=== PATIENT | male | born 1935 | race Caucasian/White ===

== ENCOUNTER → 2017-12-03 07:37 | Outpatient (CLI) | payer MEDICARE, OTHER, SELFPAY ==
[2017-12-03 09:20] LABS: Alanine Aminotransferase 15 IU/L (21-72); Albumin 3.9 g/dL (3.5-5.0); Albumin Globulin Ratio 1.1 (1.0-2.8); Alkaline Phosphatase 81 U/L (38-126); Aspartate Aminotransferase 21 IU/L (17-59); Bilirubin Total 0.9 mg/dL (0.2-1.3); Blood Urea Nitrogen 16 mg/dL (9-20); Calcium 8.8 mg/dL (8.4-10.2); Carbon Dioxide 27 mmol/L (22-32); Chloride 106 mmol/L (98-107); Estimated Glomerular Filt Rate > 60.0 mL/min (>60); Globulin 3.7 g/dL (1.7-4.1); Glucose 87 mg/dL (80-110); HEMOLYSIS < 15 (0-50); Potassium 4.5 mmol/L (3.4-5.1); Sodium 142 mmol/L (137-145); Total Protein 7.6 g/dL (6.3-8.2)
[2017-12-03 09:32] LABS: Add Manual Diff / Slide Review NO; Eosinophils Percent Auto 6.8 % (2-4); Hemoglobin 13.7 g/dL (13.5-17.5); Lymphocytes Percent Auto 36.8 % (25-40); Mean Corpuscular HGB Conc 35.3 % (30-36); Mean Corpuscular Hemoglobin 34.2 PG (26-34); Monocytes Percent Auto 10.1 % (3-14); Neutrophils Absolute Auto 2000 /uL (3000-5900); Neutrophils Percent Auto 45.3 % (50-75); Platelet Count 152 X10^3/uL (150-400); Red Blood Cell Count 4.02 X10^6/uL (4.5-5.9); Red Cell Distribution Width 13.4 % (11.6-14.8); White Blood Cell Count 4.5 X10^3/uL (4.5-11.0)
[2017-12-06 11:53] LABS: Haptoglobin 77 mg/dL (43-212)
== END ==
PROVIDERS: PCP Family Medicine; Visit Provider Internal Medicine
DX: D59.1 Other autoimmune hemolytic anemias (principal)
CPT/HCPCS: 36415; 80053; 83010; 85025

== ENCOUNTER → 2018-03-07 08:13 | Outpatient (CLI) | payer MEDICARE, OTHER, SELFPAY ==
[2018-03-07 09:05] LABS: Add Manual Diff / Slide Review NO; Basophils Percent Auto 0.8 % (0-2); Eosinophils Percent Auto 8.2 % (2-4); Hematocrit 40.7 % (41-53); Hemoglobin 14.2 g/dL (13.5-17.5); Mean Corpuscular HGB Conc 34.8 % (30-36); Mean Corpuscular Hemoglobin 33.9 PG (26-34); Mean Corpuscular Volume 97.4 fL (80-100); Monocytes Percent Auto 9.5 % (3-14); Neutrophils Absolute Auto 1800 /uL (3000-5900); Neutrophils Percent Auto 42.5 % (50-75); Platelet Count 152 X10^3/uL (150-400); Red Blood Cell Count 4.18 X10^6/uL (4.5-5.9); Red Cell Distribution Width 13.2 % (11.6-14.8); White Blood Cell Count 4.2 X10^3/uL (4.5-11.0)
[2018-03-07 09:13] LABS: Reticulocyte Count, Percent 1.4 % (0.87-2.60)
[2018-03-07 09:23] LABS: Alanine Aminotransferase 18 IU/L (21-72); Albumin 4.1 g/dL (3.5-5.0); Albumin Globulin Ratio 1.3 (1.0-2.8); Alkaline Phosphatase 77 U/L (38-126); Aspartate Aminotransferase 20 IU/L (17-59); Bilirubin Total 0.7 mg/dL (0.2-1.3); Blood Urea Nitrogen 16 mg/dL (9-20); Calcium 9.2 mg/dL (8.4-10.2); Carbon Dioxide 31 mmol/L (22-32); Chloride 105 mmol/L (98-107); Estimated Glomerular Filt Rate > 60.0 mL/min (>60); Globulin 3.2 g/dL (1.7-4.1); Glucose 91 mg/dL (80-110); HEMOLYSIS < 15 (0-50); Potassium 4.6 mmol/L (3.4-5.1); Sodium 144 mmol/L (137-145); Total Protein 7.3 g/dL (6.3-8.2)
[2018-03-09 11:41] LABS: Haptoglobin 96 mg/dL (43-212)
== END ==
PROVIDERS: Visit Provider Internal Medicine
DX: D58.9 Hereditary hemolytic anemia, unspecified (principal)
CPT/HCPCS: 36415; 80053; 83010; 85025; 85045

== ENCOUNTER → 2018-06-24 14:48 | Outpatient (CLI) | payer MEDICARE, OTHER, SELFPAY | PROVIDERS: Visit Provider Urology | DX: R97.20 Elevated prostate specific antigen [PSA] (principal) | CPT/HCPCS: 36415; 84153 ==

== ENCOUNTER → 2018-07-09 10:45 | Outpatient (CLI) | payer MEDICARE, OTHER, SELFPAY ==
[2018-07-09 11:24] LABS: Hematocrit 39.8 % (41-53); Hemoglobin 13.9 g/dL (13.5-17.5); Mean Corpuscular Hemoglobin 34.2 PG (26-34); Mean Corpuscular Volume 97.7 fL (80-100); Platelet Count 196 X10^3/uL (150-400); Red Blood Cell Count 4.07 X10^6/uL (4.5-5.9); Red Cell Distribution Width 13.7 % (11.6-14.8); White Blood Cell Count 6.8 X10^3/uL (4.5-11.0)
== END ==
PROVIDERS: PCP Student in an Organized Health Care Education/Training Program; Visit Provider Student in an Organized Health Care Education/Training Program
DX: D58.9 Hereditary hemolytic anemia, unspecified (principal)
CPT/HCPCS: 36415; 85027; 85045

== ENCOUNTER → 2018-12-25 13:34 | Outpatient (CLI) | payer MEDICARE, OTHER, SELFPAY ==
[2018-12-25 15:32] LABS: Prostate Specific Antigen 8.42 ng/mL (0.10-4.00)
== END ==
PROVIDERS: PCP Student in an Organized Health Care Education/Training Program; Visit Provider Urology
DX: R97.20 Elevated prostate specific antigen [PSA] (principal)
CPT/HCPCS: 36415; 84153

== ENCOUNTER 2019-03-26 19:25 | Emergency (ER) | payer MEDICARE, OTHER, SELFPAY ==
[2019-03-26 19:29] VITALS: BP 145/70; PULSE 45; RESP 18; TEMP 35.8; O2SAT 95; BMI 23.0
[2019-03-26] MEDS: ONDANSETRON 4 MG/2 ML INJ (19:53)
[2019-03-26 19:59] LABS: Add Manual Diff / Slide Review NO; Basophils Absolute Auto 100 /uL (0-100); Basophils Percent Auto 0.7 % (0-2); Eosinophils Absolute Auto 100 /uL (0-450); Eosinophils Percent Auto 1.4 % (2-4); Hematocrit 39.6 % (41-53); Lymphocytes Absolute Auto 1100 /uL (1100-4500); Lymphocytes Percent Auto 12.2 % (25-40); Mean Corpuscular HGB Conc 35.3 % (30-36); Mean Corpuscular Hemoglobin 34.8 PG (26-34); Mean Corpuscular Volume 98.7 fL (80-100); Monocytes Absolute Auto 400 /uL (0-900); Monocytes Percent Auto 4.1 % (3-14); Neutrophils Absolute Auto 7100 /uL (1500-7000); Neutrophils Percent Auto 81.6 % (50-75); Platelet Count 159 X10^3/uL (150-400); Red Blood Cell Count 4.01 X10^6/uL (4.5-5.9); Red Cell Distribution Width 12.9 % (11.6-14.8); White Blood Cell Count 8.7 X10^3/uL (4.5-11.0)
[2019-03-26 20:00] VITALS: BP 160/64; PULSE 44; RESP 19; O2SAT 99
[2019-03-26 20:03] LABS: Prothrombin Time 11.1 SECONDS (10.1-12.7)
[2019-03-26 20:06] LABS: PTT Partial Thromboplastin Tim 29 SECONDS (26.4-36.2)
[2019-03-26 20:09] LABS: Alanine Aminotransferase 15 IU/L (21-72); Albumin 4.6 g/dL (3.5-5.0); Albumin Globulin Ratio 1.2 (1.0-2.8); Alkaline Phosphatase 93 U/L (38-126); Aspartate Aminotransferase 24 IU/L (17-59); Blood Urea Nitrogen 20 mg/dL (9-20); Calcium 9.5 mg/dL (8.4-10.2); Carbon Dioxide 27 mmol/L (22-32); Chloride 102 mmol/L (98-107); Estimated Glomerular Filt Rate > 60.0 mL/min (>60); Globulin 3.8 g/dL (1.7-4.1); Glucose 134 mg/dL (80-110); HEMOLYSIS < 15 (0-50); Lipase 160 U/L (23-300); Potassium 4.6 mmol/L (3.4-5.1); Sodium 140 mmol/L (137-145); Total Protein 8.4 g/dL (6.3-8.2)
--- NOTE | 2019-03-26 20:11 | PC.NURSE ---
Hr dropped to 35. Pt denies dizziness. Provider aware at this time. No new orders.
--- NOTE | 2019-03-26 20:15 | ED.ABDPAIN ---
HPI - Abdominal Pain General Chief Complaint: Abdominal Pain Stated Complaint: stomach pains,vomiting,chills,little dizzy Time Seen by Provider: 03/26/19 20:01 Source: patient and family () Mode of arrival: Ambulatory Limitations: no limitations History of Present Illness HPI narrative: 84-year-old male comes in with complaint of stomach pain chills, vomiting it is feeling a little dizzy. Patient states that he started having symptoms were adjusted feel well about 3:00 a.m. this afternoon slowly increasing abdominal pain. Started feeling nauseated around 4 started vomiting at 5:00 p.m.. He had multiple episodes of emesis. Patient states he has not any diarrhea or constipation. He chronically takes Imodium for loose gassy stools. His last bowel movement was at 10:00 a.m. was his typical bowel movement. He denies any bright red blood or black. No new changes with urination. He states pain is just his abdomen does not radiate to his back, he denies any shortness of breath, denies any chest pressure pain. He has felt slightly dizzy but has not had any syncope. States he takes Celebrex occasionally such as 3 times a month for arthritis. He had an appendectomy at age 40 and has had a knee surgery. He occasionally drinks beer and had 1 last night, no tobacco, no illicit. States his heart rate typically in the 50s. His primary care is Dr. Andrews. He is accompanied by his . Related Data Home Medications Medication Instructions Recorded Confirmed acetaminophen #0 03/02/17 07/09/18 Previous Rx's Medication Instructions Recorded celecoxib [Celebrex] 100 mg PO [facility] #90 cap 09/11/17 Allergies Allergy/AdvReac Type Severity Reaction Status Date / Time No Known Drug Allergies Allergy Verified 03/26/19 20:26 Review of Systems Review of Systems ROS Unobtainable: All systems reviewed & are unremarkable except as noted in HPI and below Constitutional Constitutional: Reports chills and Denies fever(s) Cardiovascular Cardiovascular: Denies chest pain, Denies syncope, Denies edema, Denies irregular heart rhythm, Reports lightheadedness, Denies radiating jaw, neck or arm pain, Denies palpitations, Denies dyspnea, Denies dyspnea on exertion and Denies orthopnea Respiratory Respiratory: Denies change in phlegm color, Denies chest congestion, Denies cough, Denies dyspnea and Denies dyspnea on exertion Gastrointestinal Gastrointestinal: Reports abdominal pain, Denies melena, Denies hematochezia, Denies change in bowel habits, Reports excessive flatus (chronically), Denies diarrhea, Reports loose stools (chronically), Reports nausea and Reports vomiting Genitourinary Genitourinary: Denies hematuria, Denies difficulty urinating, Denies genital pain, Denies dysuria, Denies flank pain, Denies urinary frequency, Denies urinary incontinence and Denies urinary urgency Musculoskeletal Musculoskeletal: Denies back pain Integumentary/Breasts Skin/Breast: Denies rash Neurologic Neurologic: Denies syncope Endocrine Endocrine: Denies palpitations [facility] Medical History Chicken pox (Resolved) Chronic ITP (idiopathic thrombocytopenic purpura) (Resolved ~2012) Elevated PSA (Chronic ~2011) Left knee pain (Resolved ~2012) Measles (Resolved) Shoulder pain (Resolved 2008) Skin cancer (Resolved 1998) Surgical History Anesthesia (Resolved) History of arthroplasty of left shoulder (Resolved ~2009) History of knee replacement (Resolved 06/2014) Status post appendectomy (Resolved 1973) Family History (Updated 12/10/17 @ 14:14 by Ynes Sarabia) Grandfather Prostate cancer Grandmother Stroke Grandfather Cancer Sister Lung cancer Heavy smoker Father CML (chronic myelocytic leukemia) Mother Stroke Brother No problems noted. Sister No problems noted. Social History Smoking Status: Never smoker Family History Grandfather Prostate cancer Grandmother Stroke Grandfather Cancer Sister Lung cancer Heavy smoker Father CML (chronic myelocytic leukemia) Mother Stroke Brother No problems noted. Sister No problems noted. Social History (Updated 03/26/19 @ 20:27 by Elvira Meza DO) marital status: Smoking Status: Never smoker alcohol intake: current substance use type: does not use Exam Narrative Exam Narrative: GENERAL: Alert and oriented x three, elderly male in mild distress. HEENT: Head normocephalic, atraumatic, EOMI, pupils reactive, face symmetric, moist mucous membranes NECK: Supple, full range of motion CARDIOVASCULAR: Bradycardic but Regular rate and rhythm without murmurs, rubs or gallops. RESPIRATORY: Breath sounds equal bilaterally, no wheezes rales or rhonchi. No tachypnea or accessory muscle use. ABDOMEN: Soft, nontender to palpation. Normoactive bowel sounds all 4 quadrants. No guarding or rebound, rigidity, no mass, no pulsatile mass or bruit. : No CVA tenderness EXTREMITIES: Normal range of motion, no edema. 2+ pulses bilateral lower extremities. Neurovascularly intact NEUROLOGICAL: Cranial nerves II through XII grossly intact. Moving all extremities SKIN: Warm, dry, no petechiae, no rashes or lesions on abdomen or torso. Initial Vital Signs Initial Vital Signs: Vital Signs Temperature 96.4 F L 03/26/19 19:29 Pulse Rate 45 L 03/26/19 19:29 Respiratory Rate 18 03/26/19 19:29 Blood Pressure 145/70 H 03/26/19 19:29 Pulse Oximetry 95 03/26/19 19:29 Course Orders Ordered: ED Orders 03/26/19 19:40 EKG-12 Lead Stat 03/26/19 19:47 Complete Blood Count AUTO DIFF Stat Comprehensive Metabolic Panel Stat Lipase Stat Partial Thromboplastin Time Stat Prothrombin Time INR Stat Troponin & CK Cardiac Panel Stat 03/26/19 20:24 CT abdomen pelvis w con Stat Discontinued Medications Sodium Chloride (Normal Saline 0.9%) 1,000 mls @ 1,000 mls/hr IV BOLUS ONE Stop: 03/26/19 21:27 Last Infusion: 03/26/19 21:43 Dose: 0 mls/hr Documented by: Admin: 03/26/19 20:29 Dose: 1,000 mls/hr Documented by: EWA Ketorolac Tromethamine (Toradol) 15 mg IV NOW ONE Stop: 03/26/19 21:51 Last Admin: 03/26/19 22:15 Dose: Not Given Documented by: ABIDA Pantoprazole Sodium (Protonix) 40 mg IV NOW ONE Stop: 03/26/19 20:25 Last Admin: 03/26/19 20:29 Dose: 40 mg Documented by: EWA Vital Signs Vital signs: Vital Signs - 8 hr 03/26/19 20:00 03/26/19 22:46 Pulse Rate 44 L 55 L Respiratory Rate 19 12 Blood Pressure [Right Arm] 160/64 H 147/73 H Pulse Oximetry 99 100 MDM - Abdominal Pain Lab Data Attestation: I reviewed the patient's lab results. Result diagrams: 03/26/19 19:47 03/26/19 19:47 Labs: Lab Results 03/26/19 03/26/19 03/26/19 Range/Units 19:47 19:47 19:47 WBC 8.7 (4.5-11.0) X10^3/uL RBC 4.01 L (4.5-5.9) X10^6/uL Hgb 14.0 (13.5-17.5) g/dL Hct 39.6 L (41-53) % MCV 98.7 (80-100) fL MCH 34.8 H (26-34) PG MCHC 35.3 (30-36) % RDW 12.9 (11.6-14.8) % Plt Count 159 (150-400) X10^3/uL Neut % (Auto) 81.6 H (50-75) % Lymph % (Auto) 12.2 L (25-40) % Petroleum % (Auto) 4.1 (3-14) % Eos % (Auto) 1.4 L (2-4) % Baso % (Auto) 0.7 (0-2) % Neut # (Auto) 7100 H (0201-4206) /uL Lymph # (Auto) 1100 (2255-7637) /uL Petroleum # (Auto) 400 (0-900) /uL Eos # (Auto) 100 (0-450) /uL Baso # (Auto) 100 (0-100) /uL PT 11.1 (10.1-12.7) SECONDS INR 1.0 (0.9-1.3) APTT 29 (26.4-36.2) SECONDS Sodium 140 (137-145) mmol/L Potassium 4.6 (3.4-5.1) mmol/L Chloride 102 (98-107) mmol/L Carbon Dioxide 27 (22-32) mmol/L BUN 20 (9-20) mg/dL Creatinine 1.00 (0.66-1.25) mg/dL Estimated GFR > 60.0 (>60) mL/min BUN/Creatinine Ratio 20.0 (6-22) Glucose 134 H (80-110) mg/dL Calcium 9.5 (8.4-10.2) mg/dL Total Bilirubin 1.0 (0.2-1.3) mg/dL AST 24 (17-59) IU/L ALT 15 L (21-72) IU/L Alkaline Phosphatase 93 (38-126) U/L Total Creatine Kinase (55-170) U/L CK-MB (CK-2) CK-MB (CK-2) Rel Index Troponin I (0.01-0.034) ng/mL Total Protein 8.4 H (6.3-8.2) g/dL Albumin 4.6 (3.5-5.0) g/dL Globulin 3.8 (1.7-4.1) g/dL Albumin/Globulin Ratio 1.2 (1.0-2.8) Lipase 160 (23-300) U/L 03/26/19 Range/Units 19:47 WBC (4.5-11.0) X10^3/uL RBC (4.5-5.9) X10^6/uL Hgb (13.5-17.5) g/dL Hct (41-53) % MCV (80-100) fL MCH (26-34) PG MCHC (30-36) % RDW (11.6-14.8) % Plt Count (150-400) X10^3/uL Neut % (Auto) (50-75) % Lymph % (Auto) (25-40) % Petroleum % (Auto) (3-14) % Eos % (Auto) (2-4) % Baso % (Auto) (0-2) % Neut # (Auto) (9751-7465) /uL Lymph # (Auto) (2268-1359) /uL Petroleum # (Auto) (0-900) /uL Eos # (Auto) (0-450) /uL Baso # (Auto) (0-100) /uL PT (10.1-12.7) SECONDS INR (0.9-1.3) APTT (26.4-36.2) SECONDS Sodium (137-145) mmol/L Potassium (3.4-5.1) mmol/L Chloride (98-107) mmol/L Carbon Dioxide (22-32) mmol/L BUN (9-20) mg/dL Creatinine (0.66-1.25) mg/dL Estimated GFR (>60) mL/min BUN/Creatinine Ratio (6-22) Glucose (80-110) mg/dL Calcium (8.4-10.2) mg/dL Total Bilirubin (0.2-1.3) mg/dL AST (17-59) IU/L ALT (21-72) IU/L Alkaline Phosphatase (38-126) U/L Total Creatine Kinase 49 L (55-170) U/L CK-MB (CK-2) TNP CK-MB (CK-2) Rel Index TNP Troponin I < 0.012 (0.01-0.034) ng/mL Total Protein (6.3-8.2) g/dL Albumin (3.5-5.0) g/dL Globulin (1.7-4.1) g/dL Albumin/Globulin Ratio (1.0-2.8) Lipase (23-300) U/L Imaging Data CT scan - abdomen: Radiologist's impression: [place] [address] CT Scan Report Signed Patient: Randy Pepe R#: [id number] : 5Acct:[id number] Age/Sex: 84 / MDate of Service: 03/26/19 Loc: ED Accession Number: [id number] Procedure: CT abdomen pelvis w con Ordering Provider: Elvira Meza D.O. PROCEDURE: CT ABDOMEN PELVIS W CON INDICATIONS: abdominal pain, vomiting TECHNIQUE: After the administration of intravenous contrast, 5 mm thick sections acquired from the diaphragm to the symphysis. 5 mm coronal and sagittal reformats were acquired. For radiation dose reduction, the following was used: automated exposure control, adjustment of mA and/or kV according to patient size. COMPARISON: None. FINDINGS: Image quality: Excellent. ABDOMEN: Lung bases: Lung bases are clear. Heart size is normal. Solid organs: Liver is normal in size. There is an indeterminant 17 mm diameter subcapsular low-density focus within the medial segment left hepatic lobe anteroinferiorly. Gallbladder demonstrates multiple calculi within its lumen. Biliary system is non dilated. Pancreas enhances normally. Spleen is normal in size and enhancement. No adrenal nodules. Kidneys demonstrate normal size and enhancement, without hydronephrosis. Peritoneum and bowel: Bowel loops demonstrate normal wall thickness and caliber. Diverticulosis of the descending and sigmoid colon. Appendix not seen. No evidence of appendicitis. No free fluid or air. Nodes and vessels: No retroperitoneal or mesenteric adenopathy by size criteria. Aorta and inferior vena cava are normal in size. Miscellaneous: No ventral hernias. PELVIS: Genitourinary: Bladder wall thickness is normal. Miscellaneous: No inguinal hernias or adenopathy. Bones: No suspicious bony lesions. No vertebral body compression fractures. IMPRESSION: 1. No acute process. 2. Appendix not seen. No evidence of appendicitis. 3. Cholelithiasis. 4. Indeterminate left hepatic lobe lesion. This could be further assessed with nonemergent followup outpatient ultrasound examination, if clinically indicated. Dictated by: Mic Carty M.D. on 03/26/2019 at 20:57 Approved by: iMc Carty M.D. on 03/26/2019 at 20:59 ECG Data Attestation: I personally reviewed and interpreted this ECG as follows: Prior ECG tracings: not available for review Interpretation: Sinus bradycardia, rate of 40. AK of 292, QRS of 97 QTC of 432. MDM Narrative Medical decision making narrative: Patient is feeling much better after Protonix and Zofran. His pain is almost completely resolved. Patient initially dropped his heart rate into the 30s but this was when he was most uncomfortable and is improved I suspect some of this was secondary to increased vagal tone from pain. patient's imaging shows cholelithiasis, there is also a small lesion on the liver which was discussed with the patient and is unlikely to be the cause of his pain. Patient's labs show no acute abnormalities that would explain his abdominal pain. her suspect it is related to the gallstones and he states he has had family history with multiple members requiring surgery in the past. He feels much more comfortable now has no signs of infection, cholangitis or cholecystitis. Evaluation also does not show any cardiac causes for his pain. Patient was nontender on exam. Patient would like to return home and plans to follow up with primary care for a bowel. Discharge Plan Departure Patient Disposition: Home Clinical Impression: Cholelithiasis, Vomiting, Abdominal pain Discharge Date/Time: 03/26/19 23:00 Instructions: DI for Gallstones Activity Restrictions/Additional Instructions: Follow-up with your primary care or General surgery in the next 3-5 days for recheck. Call for an appointment. Your imaging today does show gallstones, and also shows a lesion on her left liver that your primary care physician can follow up with ultrasound Return to the emergency department for fevers greater than 100.4 F, persistent vomiting, lightheadedness, passing out, new or worsening abdominal pain, black or bloody stools, back or flank pain or other new or concerning symptoms. Prescriptions: No Action acetaminophen 325 MG tablet Qty: 0 RF: 0 celecoxib [Celebrex] 100 MG capsule 100 mg PO [facility] Qty: 90 RF: 3 Referrals: Antonio Andrews MD [Primary Care Provider] -
--- NOTE | 2019-03-26 20:24 | DI.CT.S_ITS ---
PROCEDURE: CT ABDOMEN PELVIS W CON INDICATIONS: abdominal pain, vomiting TECHNIQUE: After the administration of intravenous contrast, 5 mm thick sections acquired from the diaphragm to the symphysis. 5 mm coronal and sagittal reformats were acquired. For radiation dose reduction, the following was used: automated exposure control, adjustment of mA and/or kV according to patient size. COMPARISON: None. FINDINGS: Image quality: Excellent. ABDOMEN: Lung bases: Lung bases are clear. Heart size is normal. Solid organs: Liver is normal in size. There is an indeterminant 17 mm diameter subcapsular low-density focus within the medial segment left hepatic lobe anteroinferiorly. Gallbladder demonstrates multiple calculi within its lumen. Biliary system is non dilated. Pancreas enhances normally. Spleen is normal in size and enhancement. No adrenal nodules. Kidneys demonstrate normal size and enhancement, without hydronephrosis. Peritoneum and bowel: Bowel loops demonstrate normal wall thickness and caliber. Diverticulosis of the descending and sigmoid colon. Appendix not seen. No evidence of appendicitis. No free fluid or air. Nodes and vessels: No retroperitoneal or mesenteric adenopathy by size criteria. Aorta and inferior vena cava are normal in size. Miscellaneous: No ventral hernias. PELVIS: Genitourinary: Bladder wall thickness is normal. Miscellaneous: No inguinal hernias or adenopathy. Bones: No suspicious bony lesions. No vertebral body compression fractures. IMPRESSION: 1. No acute process. 2. Appendix not seen. No evidence of appendicitis. 3. Cholelithiasis. 4. Indeterminate left hepatic lobe lesion. This could be further assessed with nonemergent followup outpatient ultrasound examination, if clinically indicated. Dictated by: Mic Carty M.D. on 03/26/2019 at 20:57 Approved by: Mic Carty M.D. on 03/26/2019 at 20:59
[2019-03-26] MEDS: PANTOPRAZOLE 40 MG VIAL IV (20:29)
[2019-03-26] MEDS: SODIUM CHLORIDE 0.9% 1,000 ML 1000 ML IV (20:29)
[2019-03-26 20:38] LABS: Creatine Kinase 49 U/L (55-170)
[2019-03-26 20:51] LABS: Troponin I < 0.012 ng/mL (0.01-0.034)
[2019-03-26 22:46] VITALS: BP 147/73; PULSE 55; RESP 12; O2SAT 100
== END 2019-03-26 23:00 | disposition home or self-care (01) ==
PROVIDERS: Emergency Provider Emergency Medicine; PCP Student in an Organized Health Care Education/Training Program
DX: K80.20 Calculus of gallbladder without cholecystitis without obstruction (principal); R11.10 Vomiting, unspecified; R10.9 Unspecified abdominal pain
CPT/HCPCS: 36415; 74177; 80053; 82550; 83690; 84484; 85025; 85610; 85730; 93005; 96361; 96374; 96375; 99283; 99285; C9113; J2405; Q9967

== ENCOUNTER → 2019-04-01 08:45 | Outpatient (CLI) | payer MEDICARE, OTHER, SELFPAY ==
--- NOTE | 2019-04-01 08:48 | DI.US.S_ITS ---
PROCEDURE: US ABDOMEN COMPLETE INDICATIONS: RUQ PAIN. GALLSTONES ON CT. INCIDENTAL LIVER LESION TECHNIQUE: Real-time scanning was performed of the abdominal and retroperitoneal organs, with image documentation. COMPARISON: [facility], CT, CT ABDOMEN PELVIS W CON, 03/26/2019, 20:37. FINDINGS: Liver: Liver is normal in size and homogeneous in echotexture. Hepatic cyst seen within the medial segment of the left hepatic lobe measuring roughly 1.2 cm. Gallbladder: Multiple gallstones identified in gallbladder wall is thickened measuring up to 6.0 mm. Biliary ducts: Intrahepatic bile ducts are non-dilated. Extrahepatic bile duct caliber measures 7.1 mm. Normal is 6-7 mm or less in diameter, or 10 mm or less post-cholecystectomy. Pancreas: Visualized portions of the pancreas are sonographically normal. Spleen: Spleen is normal in size and homogeneous in echotexture. Kidneys: Kidneys are normal in size and echotexture. Right kidney measures 10.4 cm long; left kidney measures 10.1 cm long. No hydronephrosis or nephrolithiasis. No solid masses. Left renal cyst measuring 12 mm. Aorta: Visualized aorta is normal in caliber at less than 3 cm. Iliacs: Proximal common iliac arteries are normal in caliber at less than 2.5 cm. IVC: Intrahepatic inferior vena cava is patent. Miscellaneous: No free abdominal fluid. IMPRESSION: 1. Multiple gallstones in the gallbladder wall is thickened measuring up to 6.0 mm. Developing cholecystitis cannot be excluded close clinical correlation and follow up is recommended. 2. Hepatic cyst within the medial segment of the left hepatic lobe anteriorly corresponding to the hypodensity seen on prior CT. Dr. Andrews given results at 1027 hrs. 04/01/19. Dictated by: Ben BOLTON Interpreted: Heaven Garcia MD on 04/01/2019 at 10:14 Approved by: Heaven Garcia M.D. on 04/01/2019 at 12:48
== END ==
PROVIDERS: PCP Student in an Organized Health Care Education/Training Program; Visit Provider Student in an Organized Health Care Education/Training Program
DX: R10.11 Right upper quadrant pain (principal); K80.20 Calculus of gallbladder without cholecystitis without obstruction; K76.89 Other specified diseases of liver
CPT/HCPCS: 76700

== ENCOUNTER 2019-04-22 06:29 | Day surgery (SDC) | payer MEDICARE, OTHER, SELFPAY ==
[2019-04-17 08:04] VITALS: BMI 24.6
[2019-04-22] VITALS (10 sets, daily range): BP systolic 104–138; BP diastolic 39–74; PULSE 44–54; RESP 11–16; TEMP 36.2–36.7; O2SAT 11–99; BMI 23.0
--- NOTE | 2019-04-22 | PATH_ITS ---
[facility] Accession Number: [id number] . 01 Material submitted: . gallbladder - GALLBLADDER . 02 Diagnosis: Gallbladder, Cholecystectomy: Chronic cholecystitis, cholesterolosis, and cholelithiasis. MRV 04/24/2019 0952 Local . 02 Electronically signed: . Cici Lopez MD, Pathologist NPI- [id number] . 01 Gross description: . The specimen is received in a formalin-filled container, labeled gallbladder, and consists of a 6.7 x 3.6 x 2.5 cm, pink-salas, smooth to cauterized gallbladder in which the cystic duct margin is inked blue. There is a single transmural defect along the body of the gallbladder up 1.5 cm. There are numerous black bosselated calculi present ranging from 0.1 cm up to 0.6 cm. The mucosa is salas-green, diffusely trabeculated, focally velvety, and the wall thickness ranges from 0.2 cm up to 0.4 cm. [employer] sections including blue-inked cystic duct margin are submitted in A1. ([id number]) /MRV 04/23/2019 1604 Local . 02 Pathologist provided ICD-10: K81.1, K80.60 . 02 CPT . 762229 Performed at: 01 [facility] [address], [place], [place] [id number] MD Milo Cid MD Phone: [phone] Performed at: 02 [facility] [address] [place], [place] [id number] MD Flavia Miranda MD Phone: [phone]
[2019-04-22] MEDS: LACTATED RINGERS 1,000 ML 42 ML IV (07:32)
--- NOTE | 2019-04-22 07:33 | PM.PREOP ---
Pre-operative Note Interval Note History & Physical reviewed/Exam performed by Physician: Yes Changes to H&P: No
[2019-04-22] MEDS: CEFAZOLIN 2 GM/100 ML FROZ.PIGGY IV (07:56)
--- NOTE | 2019-04-22 08:25 | SUR.OPER ---
Supine on padded OR bed, head on pillow, arms secured on padded arm boards at <90 degrees abduction, legs uncrossed, safety belt at thigh, tape over blanket over lower legs.Padded footbaord
[2019-04-22] MEDS: BUPIVACAINE 0.25% (PF) VIAL 30 ML INJ (08:38)
--- NOTE | 2019-04-22 09:10 | PM.OP.1 ---
Operative Date/Time/Diagnoses Date of procedure: 04/22/19 Time of procedure: 09:10 Pre-op diagnosis: biliary colic Post-op diagnosis: same Procedure & Clinicians Procedure: Laparoscopic cholecystectomy Same procedure as scheduled: Yes Indications: 84-year-old male with biliary colic presents for elective cholecystectomy. Surgeon: Yo Spears Anesthesia Type: General Operative Notes Findings: Chronic cholecystitis. Recently took Celebrex and there was mild amount of generalized oozing from incisions which was controlled. Specimen(s): other (Gallbladder) Estimated Blood Loss (mL): 30 Procedure in detail: The patient was brought to the operating room placed supine on the table. Bilateral lower extremity compression devices were applied. General anesthesia was induced and they were intubated with an endotracheal tube. They received 3.75 g of Zosyg Ancef prior to skin incision. A time-out was performed to ensure the correct patient procedure necessary equipment within the operating room. They were then prepped and draped in the usual sterile fashion. Infraumbilical incision was made the umbilical stalk was grasped and elevated and the fascia was sharply incised. The abdomen was entered atraumatically. A 10 mm trocar was then placed into the abdomen. Pneumoperitoneum was established. The laparoscopic camera was inserted into the abdomen inspection was made that demonstrated no evidence of injury upon entry. We then placed our working ports the 1st 5 mm port high in the epigastrium and then 2 in the right upper quadrant. The gallbladder was grasped and retracted over the liver and grasped laterally by the fundus. The triangle of Calot was exposed. The triangle of calot was then skeletonized using hook electrocautery and demonstrated the cystic duct clearly entering the gallbladder the cystic artery and the liver and in the background. With the critical view of safety established the cystic duct was clipped twice proximally and once distally and then sharply divided and the cystic artery was taken in the same fashion. Next the gallbladder was removed from the liver bed using electro cautery. The liver bed was then inspected for hemostasis and this was achieved. The abdomen was irrigated with sterile saline and inspection was made that showed the clips in good position. The specimen was removed using Endo-Catch. The abdomen was desufflated. The the fascia of the umbilicus was closed with 0 Vicryl in a [id number]-[id number] fashion. Skin incisions were irrigated and closed with 4-0 Monocryl. The wounds were sealed with Dermabond. Patient emerged from general anesthesia was extubated and transferred to the postoperative care unit missed stable condition. The sponge and instrument count at the end of the operation was correct. Complications: none Post-operative Condition: stable Disposition: same day surgery
--- NOTE | 2019-04-22 09:30 | SUR.PHASEI ---
Patient arrived in PACU somnolent, but arouses to voice. Arnieg CDI. Rates pain 3/10. Applied ice pack.
== END 2019-04-22 10:33 | disposition home or self-care (01) ==
PROVIDERS: PCP Student in an Organized Health Care Education/Training Program; Visit Provider Surgery
PROC: 0FT44ZZ Resection of Gallbladder, Percutaneous Endoscopic Approach (ICD-10-PCS; CPT 47562; principal; 2019-04-22 07:45)
DX: K80.10 Calculus of gallbladder with chronic cholecystitis without obstruction (principal)
CPT/HCPCS: 47562; J0690; J1100; J1885; J2405; J2704

== ENCOUNTER → 2019-07-23 14:11 | Outpatient (CLI) | payer MEDICARE, OTHER, SELFPAY ==
[2019-07-23 14:26] LABS: Bacteria Urine None Seen
[2019-07-23 16:06] LABS: Appearance Urine UA CLEAR; Bilirubin Urine UA NEGATIVE (NEGATIVE); Color Urine UA YELLOW; Glucose Urine UA NEGATIVE (Negative); Ketones Urine UA NEGATIVE (NEGATIVE); Leukocyte Esterase Urine UA NEGATIVE (NEGATIVE); Nitrite Urine UA NEGATIVE (Negative); Occult Blood Urine UA NEGATIVE (Negative); Protein Urine UA NEGATIVE (Negative); Specific Gravity Urine UA 1.025 (1.000-1.035); Urobilinogen Urine UA 0.2 E.U./dL (0.2)
[2019-07-23 16:19] LABS: Culture Indicated Urine Cult Not Indicated; Mucus Urine 1+ (Negative); RBC Urine 0-1/HPF (0-5/HPF); WBC Urine 0-1/HPF (0-5/HPF)
== END ==
PROVIDERS: PCP Student in an Organized Health Care Education/Training Program; Referring Provider Urology; Visit Provider Urology
DX: N40.1 Benign prostatic hyperplasia with lower urinary tract symptoms (principal)
CPT/HCPCS: 81001

== ENCOUNTER → 2019-09-03 13:24 | Outpatient (CLI) | payer MEDICARE, OTHER, SELFPAY ==
[2019-09-03 15:34] LABS: Prostate Specific Antigen 8.49 ng/mL (0.10-4.00)
== END ==
PROVIDERS: PCP Student in an Organized Health Care Education/Training Program; Referring Provider Urology; Visit Provider Urology
DX: R97.20 Elevated prostate specific antigen [PSA] (principal)
CPT/HCPCS: 36415; 84153

== ENCOUNTER → 2020-02-18 10:25 | Outpatient (CLI) | payer MEDICARE, OTHER, SELFPAY ==
[2020-02-19 16:36] LABS: COVID19 Sendout Not Detected (Not Detected)
== END ==
PROVIDERS: PCP Student in an Organized Health Care Education/Training Program; Visit Provider Physician Assistant
DX: Z11.59 Encounter for screening for other viral diseases (principal); R50.9 Fever, unspecified
CPT/HCPCS: 87635

== ENCOUNTER → 2020-03-11 09:03 | Outpatient (CLI) | payer MEDICARE, OTHER, SELFPAY | PROVIDERS: PCP Student in an Organized Health Care Education/Training Program; Referring Provider Urology; Visit Provider Urology | DX: R97.20 Elevated prostate specific antigen [PSA] (principal) | CPT/HCPCS: 36415; 84153 ==

== ENCOUNTER 2020-04-02 10:38 | Emergency (ER) | payer MEDICARE, OTHER, SELFPAY ==
[2020-04-02] VITALS (8 sets, daily range): BP systolic 109–130; BP diastolic 53–60; PULSE 49–58; RESP 11–22; TEMP 36.4; O2SAT 94–100; BMI 22.8
--- NOTE | 2020-04-02 10:48 | DI.CT.S_ITS ---
PROCEDURE: CT HEAD/BRAIN WO CON INDICATIONS: Syncope TECHNIQUE: Noncontrast 4.5 mm thick angled axial sections acquired from the foramen magnum to the vertex, with coronal and sagittal reformats. For radiation dose reduction, the following was used: automated exposure control, adjustment of mA and/or kV according to patient size. COMPARISON: None. FINDINGS: Image quality: Excellent. CSF spaces: Basal cisterns are patent. No extra-axial fluid collections. The ventricles are symmetric in size and shape. Brain: No intracranial bleeds or masses. There is cerebral volume loss for age, with resultant ventricular and sulcal prominence. There are periventricular and deep white matter chronic small vessel ischemic changes. There is intracranial internal carotid artery atherosclerosis. Skull and face: Calvarium and visualized facial bones appear intact, without suspicious lesions. Sinuses: Visualized sinuses and mastoids are clear. IMPRESSION: No acute intracranial finding. Dictated by: Villa Valentine M.D. on 04/02/2020 at 11:10 Approved by: Villa Valentine M.D. on 04/02/2020 at 11:12
--- NOTE | 2020-04-02 10:48 | DI.RAD.S_ITS ---
PROCEDURE: XR CHEST 1V INDICATIONS: Syncope TECHNIQUE: One view of the chest was acquired. COMPARISON: None. FINDINGS: Surgical changes and devices: None. Lungs and pleura: Opacity in the left lung base is nonspecific but most likely represents atelectasis overlying the hemidiaphragm. No pleural effusions or pneumothorax. Mediastinum: Mediastinal contours appear normal. Heart size is normal. Bones and chest wall: No suspicious bony lesions. Overlying soft tissues appear unremarkable. IMPRESSION: Minimal airspace opacity in the left lung base is presumably atelectasis. Pneumonia would need clinical exclusion. Dictated by: Villa Valentine M.D. on 04/02/2020 at 11:01 Approved by: Vilal Valentine M.D. on 04/02/2020 at 11:01
--- NOTE | 2020-04-02 10:50 | ED.SYNCOPE ---
HPI - Syncope General Chief Complaint: Weakness Stated Complaint: Syncope & Vomiting Time Seen by Provider: 04/02/20 10:47 Source: patient and EMS Mode of arrival: EMS Limitations: no limitations History of Present Illness HPI narrative: The patient is an 85-year-old male no known medical issues presenting today after syncopal episode. 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 He says it was quite a bit of work. He got dizzy lightheaded and nearly passed out. EMS was called. The initial report pale white diaphoretic hypotensive and bradycardic. He was given 1 L of normal saline and Zofran he overall is feeling better. He does have a pretty profound first-degree AV block but his heart rate does seem to be improving and was previously 40 is now 69. He now has a blood pressure to systolic of 130 previously 95. He says he did have diarrhea this morning he took 2 Imodium son nothing out of the ordinary for him. He did also vomit EMS questions possible aspiration. He denies any shortness of breath or cough. MD complaint: collapsed Related Data Home Medications Medication Instructions Recorded Confirmed acetaminophen 325 mg PO PRN PRN #0 03/02/17 05/07/19 celecoxib [Celebrex] 100 mg PO AMCC PRN 04/22/19 03/17/20 loperamide [Imodium A-D] 2 mg PO Q4H PRN 04/22/19 03/17/20 Allergies Allergy/AdvReac Type Severity Reaction Status Date / Time No Known Drug Allergies Allergy Verified 04/02/20 10:51 Review of Systems Review of Systems ROS Unobtainable: All systems reviewed & are unremarkable except as noted in HPI and below Constitutional Constitutional: Denies chills, Denies fever(s), Denies frequent falls, Denies headache(s), Denies lethargy and Denies weakness ENT Ears, Nose, Mouth, and Throat: Denies headache(s) Cardiovascular Cardiovascular: Denies chest pain, Reports syncope, Denies edema, Denies irregular heart rhythm, Denies dyspnea, Denies dyspnea on exertion and Denies orthopnea Respiratory Respiratory: Denies cough, Denies dyspnea, Denies dyspnea on exertion and Denies wheezing Gastrointestinal Gastrointestinal: Reports as per HPI, Reports diarrhea, Reports nausea and Reports vomiting Musculoskeletal Musculoskeletal: Denies arthralgias and Denies back pain Integumentary/Breasts Skin/Breast: Denies pruritus, Denies erythema, Denies rash and Denies wounds Neurologic Neurologic: Reports syncope, Denies frequent falls, Denies headache(s) and Denies weakness Allergic/Immunologic Allergic/Immunologic: Denies wheezing Patient History Medical History Anemia (Acute) BPH (benign prostatic hyperplasia) (Acute) BPH loc w/o ur obs/LUTS (Acute) Chicken pox (Resolved) Chronic ITP (idiopathic thrombocytopenic purpura) (Resolved ~2012) Elevated PSA (Chronic ~2011) Elevated PSA (Acute) Left knee pain (Resolved ~2012) Measles (Resolved) Shoulder pain (Resolved 2008) Skin cancer (Resolved 1998) Surgical History Anesthesia (Resolved) H/O prostate biopsy (Acute) History of arthroplasty of left shoulder (Resolved ~2009) History of knee replacement (Resolved 06/2014) Hx of appendectomy (Acute) Status post appendectomy (Resolved 1973) Family History Grandfather Prostate cancer Grandmother Stroke Grandfather Cancer Sister Lung cancer Heavy smoker Father CML (chronic myelocytic leukemia) Mother Stroke Brother No problems noted. Sister No problems noted. Social History marital status: household members: spouse Smoking Status: Never smoker alcohol intake: current substance use type: does not use Smoking Status: Never smoker alcohol intake frequency: a few times a month Substance Use Type: does not use Exam Initial Vital Signs Initial Vital Signs: Vital Signs Temperature 97.6 F 04/02/20 10:45 Pulse Rate 58 L 04/02/20 10:45 Respiratory Rate 19 04/02/20 10:45 Blood Pressure 130/60 04/02/20 10:45 Pulse Oximetry 100 04/02/20 10:45 GENERAL: Alert pleasant elderly male and in no acute distress. HEENT: Head atraumatic,EOMI, pupils reactive, face symmetric, moist mucous membranes CARDIOVASCULAR: Regular rate and rhythm without murmurs, rubs or gallops. RESPIRATORY: Breath sounds equal bilaterally, no wheezes rales or rhonchi. ABDOMEN: Soft, nontender. Normoactive bowel sounds all 4 quadrants. No guarding or rebound. EXTREMITIES: Normal range of motion, no clubbing or edema. Neurovascularly intact NEUROLOGICAL: Alert and oriented x4.Normal gait and speech. Cranial nerves II through XII grossly intact. Hand Compositor strength equal bilaterally SKIN: Warm, dry, no laceration, no petechiae, no rashes or lesions. Course Orders Ordered: ED Orders 04/02/20 10:30 Complete Blood Count AUTO DIFF Stat Comprehensive Metabolic Panel Stat Lipase Stat Troponin & CK Cardiac Panel Stat 04/02/20 10:48 CT head/brain wo con Stat XR chest 1V Stat EKG-12 Lead Stat 04/02/20 11:14 Lactate (Lactic Acid) Stat Discontinued Medications Sodium Chloride (Normal Saline 0.9%) 1,000 mls @ 150 mls/hr IV CONT MARISA Last Infusion: 04/02/20 12:59 Dose: 150 mls/hr Documented by: Admin: 04/02/20 11:16 Dose: 150 mls/hr Documented by: MMTATIANAR Vital Signs Vital signs: Vital Signs - 8 hr 04/02/20 11:04 04/02/20 11:15 04/02/20 11:30 Pulse Rate 51 L 50 L 49 L Respiratory Rate 11 L 14 Blood Pressure 112/57 L 109/54 L Pulse Oximetry 95 99 99 04/02/20 12:00 04/02/20 12:30 04/02/20 12:39 Pulse Rate 49 L 55 L 49 L Respiratory Rate 22 Blood Pressure 111/53 L 111/56 L 122/57 L Pulse Oximetry 94 98 100 MDM - Syncope Lab Data Attestation: I reviewed the patient's lab results. Result diagrams: 04/02/20 10:30 04/02/20 10:30 Labs: Lab Results 04/02/20 04/02/20 04/02/20 Range/Units 10:30 10:30 11:14 WBC 7.8 (4.5-11.0) X10^3/uL RBC 4.28 L (4.5-5.9) X10^6/uL Hgb 13.9 (13.5-17.5) g/dL Hct 41.2 (41-53) % MCV 96.2 (80-100) fL MCH 32.5 (26-34) PG MCHC 33.8 (30-36) % RDW 14.1 (11.6-14.8) % Plt Count 177 (150-400) X10^3/uL Neut % (Auto) 59.8 (50-75) % Lymph % (Auto) 26.4 (25-40) % [place] % (Auto) 9.6 (3-14) % Eos % (Auto) 3.7 (2-4) % Baso % (Auto) 0.5 (0-2) % Neut # (Auto) 4600 (0412-8653) /uL Lymph # (Auto) 2100 (0081-4087) /uL [place] # (Auto) 700 (0-900) /uL Eos # (Auto) 300 (0-450) /uL Baso # (Auto) 0 (0-100) /uL Sodium 138 (137-145) mmol/L Potassium 4.2 (3.4-5.1) mmol/L Chloride 105 (98-107) mmol/L Carbon Dioxide 24 (22-32) mmol/L BUN 19 (9-20) mg/dL Creatinine 1.23 (0.66-1.25) mg/dL Estimated GFR 55.9 L (>60) mL/min BUN/Creatinine Ratio 15.4 (6-22) Glucose 109 (80-110) mg/dL Lactate 1.8 (0.7-2.1) mmol/L Calcium 9.0 (8.4-10.2) mg/dL Total Bilirubin 1.0 (0.2-1.3) mg/dL AST 31 (17-59) IU/L ALT 13 (<50) IU/L Alkaline Phosphatase 100 (38-126) U/L Total Creatine Kinase 72 (55-170) U/L CK-MB (CK-2) TNP CK-MB (CK-2) Rel Index TNP Troponin I < 0.012 (0.01-0.034) ng/mL Total Protein 8.1 (6.3-8.2) g/dL Albumin 4.3 (3.5-5.0) g/dL Globulin 3.8 (1.7-4.1) g/dL Albumin/Globulin Ratio 1.1 (1.0-2.8) Lipase 103 (23-300) U/L Imaging Data CT scan - head: Radiologist's Impression: PROCEDURE: CT HEAD/BRAIN WO CON INDICATIONS: Syncope TECHNIQUE: Noncontrast 4.5 mm thick angled axial sections acquired from the foramen magnum to the vertex, with coronal and sagittal reformats. For radiation dose reduction, the following was used: automated exposure control, adjustment of mA and/or kV according to patient size. COMPARISON: None. FINDINGS: Image quality: Excellent. CSF spaces: Basal cisterns are patent. No extra-axial fluid collections. The ventricles are symmetric in size and shape. Brain: No intracranial bleeds or masses. There is cerebral volume loss for age, with resultant ventricular and sulcal prominence. There are periventricular and deep white matter chronic small vessel ischemic changes. There is intracranial internal carotid artery atherosclerosis. Skull and face: Calvarium and visualized facial bones appear intact, without suspicious lesions. Sinuses: Visualized sinuses and mastoids are clear. IMPRESSION: No acute intracranial finding. Dictated by: Villa Valentine M.D. on 04/02/2020 at 11:10 Chest x-ray: Radiologist's Impression: PROCEDURE: XR CHEST 1V INDICATIONS: Syncope TECHNIQUE: One view of the chest was acquired. COMPARISON: None. FINDINGS: Surgical changes and devices: None. Lungs and pleura: Opacity in the left lung base is nonspecific but most likely represents atelectasis overlying the hemidiaphragm. No pleural effusions or pneumothorax. Mediastinum: Mediastinal contours appear normal. Heart size is normal. Bones and chest wall: No suspicious bony lesions. Overlying soft tissues appear unremarkable. IMPRESSION: Minimal airspace opacity in the left lung base is presumably atelectasis. Pneumonia would need clinical exclusion. Dictated by: Villa Valentine M.D. on 04/02/2020 at 11:01 Approved by: Villa Valentine M.D. on 04/02/2020 at 11 ECG Data Attestation: I personally reviewed and interpreted this ECG as follows: Prior ECG tracings: available for review Interpretation: Normal sinus rhythm first-degree heart block p.r. interval 3 O2 QRS [address] changes similar to previous EKG previous p.r. interval was 292 MDM Narrative Medical decision making narrative: Patient is overall feeling much better hemodynamically stable. He is ambulatory in the ED without any difficulty and feels overall much better. Possible he was over worked and vasovagal. Discharge Plan Departure Patient Disposition: Home Clinical Impression: Syncope Qualifiers: Syncope type: unspecified Qualified Code(s): R55 - Syncope and collapse Discharge Date/Time: 04/02/20 13:01 Instructions: DI for Syncope in Adults (Fainting) Activity Restrictions/Additional Instructions: *You have been diagnosed with syncope *What to do: I think he likely over exerted herself this morning. Take it easy the rest today be sure to drink fluids. Blood work is overall reassuring *Continue to take medications as directed *Follow up with your primary care provider in 2-3 days *Return to ER if you should have recurrent episode of passing out persistent nausea vomiting shortness of breath or any new, worsening or concerning symptoms Prescriptions: No Action acetaminophen 325 MG tablet 325 mg PO PRN PRN (Reason: Pain (Scale Score 1-3)) Qty: 0 RF: 0 loperamide [Imodium A-D] 2 mg Tablet 2 mg PO Q4H PRN (Reason: Pain (Scale Score 1-3)) RF: 0 celecoxib [Celebrex] 100 MG capsule 100 mg PO AMCC PRN (Reason: Pain (Scale Score 1-3)) RF: 0 Referrals: Antonio Andrews MD [Primary Care Provider] -
[2020-04-02 10:59] LABS: Add Manual Diff / Slide Review NO; Basophils Absolute Auto 0 /uL (0-100); Basophils Percent Auto 0.5 % (0-2); Eosinophils Absolute Auto 300 /uL (0-450); Eosinophils Percent Auto 3.7 % (2-4); Hematocrit 41.2 % (41-53); Hemoglobin 13.9 g/dL (13.5-17.5); Lymphocytes Absolute Auto 2100 /uL (1100-4500); Lymphocytes Percent Auto 26.4 % (25-40); Mean Corpuscular HGB Conc 33.8 % (30-36); Mean Corpuscular Hemoglobin 32.5 PG (26-34); Mean Corpuscular Volume 96.2 fL (80-100); Monocytes Absolute Auto 700 /uL (0-900); Monocytes Percent Auto 9.6 % (3-14); Neutrophils Absolute Auto 4600 /uL (1500-7000); Neutrophils Percent Auto 59.8 % (50-75); Platelet Count 177 X10^3/uL (150-400); Red Blood Cell Count 4.28 X10^6/uL (4.5-5.9); Red Cell Distribution Width 14.1 % (11.6-14.8); White Blood Cell Count 7.8 X10^3/uL (4.5-11.0)
[2020-04-02 11:10] LABS: Alanine Aminotransferase 13 IU/L (<50); Albumin 4.3 g/dL (3.5-5.0); Albumin Globulin Ratio 1.1 (1.0-2.8); Alkaline Phosphatase 100 U/L (38-126); Aspartate Aminotransferase 31 IU/L (17-59); BUN Creatinine Ratio 15.4 (6-22); Blood Urea Nitrogen 19 mg/dL (9-20); Carbon Dioxide 24 mmol/L (22-32); Chloride 105 mmol/L (98-107); Creatine Kinase 72 U/L (55-170); Estimated Glomerular Filt Rate 55.9 mL/min (>60); Globulin 3.8 g/dL (1.7-4.1); Glucose 109 mg/dL (80-110); HEMOLYSIS 48 (0-50); Lipase 103 U/L (23-300); Potassium 4.2 mmol/L (3.4-5.1); Sodium 138 mmol/L (137-145); Total Protein 8.1 g/dL (6.3-8.2)
[2020-04-02] MEDS: SODIUM CHLORIDE 0.9% 1,000 ML 150 ML IV (11:16)
[2020-04-02 11:21] LABS: Troponin I < 0.012 ng/mL (0.01-0.034)
[2020-04-02 11:34] LABS: Lactate (Lactic Acid) 1.8 mmol/L (0.7-2.1)
--- NOTE | 2020-04-02 12:43 | PC.NURSE ---
ambulated pt around ED, pt tolerated well with no complains or dizziness
== END 2020-04-02 13:01 | disposition home or self-care (01) ==
PROVIDERS: Emergency Provider Emergency Medicine; PCP Student in an Organized Health Care Education/Training Program
DX: R55 Syncope and collapse (principal); R00.1 Bradycardia, unspecified; R11.2 Nausea with vomiting, unspecified
CPT/HCPCS: 36415; 70450; 71045; 80053; 82550; 83605; 83690; 84484; 85025; 93005; 96360; 96361; 99284

== ENCOUNTER → 2020-04-08 12:46 | Outpatient (CLI) | payer MEDICARE, OTHER, SELFPAY ==
--- NOTE | 2020-04-08 12:48 | DI.MRI.S_ITS ---
PROCEDURE: MR PELIS WO/W CON INDICATIONS: elevated psa TECHNIQUE: Coronal HASTE, axial T1 FSE with fat saturation, 3-plane nonbreath-hold T2 FSE. After the administration of contrast, dynamic axial, delayed axial and coronal VIBE or 2-D FLASH with fat saturation through the pelvis. Optional diffusion weighted imaging and ADC may be performed. COMPARISON: [facility], CT, CT ABDOMEN PELVIS W CON, 03/26/2019, 20:37. FINDINGS: Image quality: Diagnostic. Prostate: Gland size is 5.1 x 3.3 x 4.7 cm; ellipsoid gland volume is 54 mL. There is heterogeneous enlargement of the transitional zone compatible with BPH. Lesion size(s): Lesion 1: Approximately 1.9 x 0.9 cm in transverse dimension. Lesion location(s) (sector): Lesion 1: Right anterior transitional zone in the mid-prostate to apex. Lesion description: Lesion 1: There is an oval moderately T2 hypointense lesion with indistinct margins. No evidence of extracapsular extension. T2 weighted imaging (T2WI) morphology score: Lesion 1: 5 Diffusion weighted imaging (DWI) morphology score: Lesion 1: 3 Dynamic contrast enhancement (DCE): Lesion 1: Present. Lesion PI-RADS score: Lesion 1: PI-RADS 5 Genitourinary system: Bladder wall thickness is normal. Distal ureters are non distended. Bowel and peritoneum: No pathologic free pelvic fluid. There is mild segmental wall thickening of the sigmoid colon suggestive of a mild colitis. Colonic diverticulosis is demonstrated without acute diverticulitis. Nodes and vessels: No pelvic or inguinal adenopathy by size criteria. Iliac vessels are normal in caliber. Soft tissues: No inguinal hernias. There is peritendinous enhancement along the distal gluteal tendons as well as along the greater trochanter, left greater than right. Findings are compatible with a peritendinitis as well as possible mild bursitis. Bones: Marrow demonstrates normal overall signal, without suspicious lesions to suggest metastases. IMPRESSION: 1. PI-RADS 5 lesion demonstrated within the anterior right transitional zone. No evidence of extraprostatic extension. 2. No evidence of lymphadenopathy or metastatic disease in the pelvis. 3. Heterogeneous enlargement of the transitional zone compatible with BPH. 4. Mild segmental wall thickening in the sigmoid colon suggestive of an infectious or inflammatory colitis. Dictated by: Milo Reeves M.D. on 04/09/2020 at 9:16 Approved by: Milo Reeves M.D. on 04/09/2020 at 9:48
== END ==
PROVIDERS: PCP Student in an Organized Health Care Education/Training Program; Referring Provider Specialist; Visit Provider Specialist
DX: R97.20 Elevated prostate specific antigen [PSA] (principal)
CPT/HCPCS: 72197; A9579

== ENCOUNTER → 2020-08-17 13:57 | Outpatient (CLI) | payer MEDICARE, OTHER, SELFPAY ==
[2020-08-17 16:21] LABS: Prostate Specific Antigen 2.49 ng/mL (0.10-4.00)
== END ==
PROVIDERS: PCP Student in an Organized Health Care Education/Training Program; Referring Provider Specialist; Visit Provider Specialist
DX: C61 Malignant neoplasm of prostate (principal)
CPT/HCPCS: 36415; 84153

== ENCOUNTER → 2020-08-19 07:09 | Outpatient (CLI) | payer MEDICARE, OTHER, SELFPAY ==
[2020-08-19 08:34] LABS: Cholesterol 169 mg/dL (140-199); HDL Cholesterol 43 mg/dL (40-60); LDL Cholesterol Calculated 105 mg/dL (<100); Triglycerides 103 mg/dL (35-150)
== END ==
PROVIDERS: PCP Student in an Organized Health Care Education/Training Program; Referring Provider Student in an Organized Health Care Education/Training Program; Visit Provider Student in an Organized Health Care Education/Training Program
DX: Z13.220 Encounter for screening for lipoid disorders (principal)
CPT/HCPCS: 36415; 80061

== ENCOUNTER 2021-02-09 06:35 | Emergency (ER) | payer MEDICARE, OTHER, SELFPAY ==
[2021-02-09 06:35] VITALS: BP 170/80; PULSE 68; RESP 17; TEMP 36.7; O2SAT 97; BMI 24.3
--- NOTE | 2021-02-09 07:08 | ED.SKABFB ---
HPI - Skin/Abscess/Foreign Bdy General Chief complaint: Skin/Abscess/Foreign Body Stated complaint: growth in groin Time Seen by Provider: 02/09/21 07:08 Source: patient Mode of arrival: Ambulatory Limitations: no limitations History of Present Illness HPI narrative: 86-year-old gentleman with a history of prostate cancer on suppression presents with a growth in the left groin. He had noticed a small, pea like, cyst in the area in June but was unable to get it more completely evaluated due to COVID. Over the last 10 days it has become increasingly red and painful and he is concerned that it may be related to his prostate cancer. He describes no recent fevers, cough, chills, abdominal pain, vomiting, diarrhea, palpitations, chest pain, headaches. Related Data Home Medications Medication Instructions Recorded Confirmed loperamide 2 mg tablet (Imodium 2 mg PO Q4H PRN 04/22/19 02/08/21 A-D) celecoxib 100 mg capsule (Celebrex) 200 mg PO AMCC PRN cap 08/11/20 02/08/21 denosumab 60 mg/mL subcutaneous 60 mg SUBCUT [id number] 08/11/20 02/08/21 syringe (Prolia) leuprolide (3 month) 22.5 mg (3 22.5 mg SUBCUT [id number] 08/11/20 02/08/21 month) subcutaneous syringe (Eligard) loratadine 10 mg tablet (Claritin) 10 mg PO DAILY 08/24/20 02/08/21 Previous Rx's Medication Instructions Recorded tamsulosin 0.4 mg capsule 0.4 mg PO BEDTIME #90 cap 05/18/20 megestrol 20 mg tablet 20 mg PO BID #180 tab 08/24/20 ciprofloxacin HCl 500 mg tablet 500 mg PO BID #6 tab 09/07/20 cephalexin 500 mg capsule 500 mg PO TID 5 Days #15 cap 02/09/21 Allergies Allergy/AdvReac Type Severity Reaction Status Date / Time No Known Drug Allergies Allergy Verified 02/08/21 16:15 Review of Systems Review of Systems Narrative: Remainder of complete review of systems is otherwise unremarkable except for that included in the HPI. Patient History Medical History Acute calculous cholecystitis Anemia BPH loc w/o ur obs/LUTS Chicken pox Chronic ITP (idiopathic thrombocytopenic purpura) (~2012) Left knee pain (~2012) Measles Prostate cancer Shoulder pain (2008) Skin cancer (1998) Skin cancer Surgical History Anesthesia H/O prostate biopsy History of arthroplasty of left shoulder (~2009) History of knee replacement (06/2014) Hx of appendectomy Status post appendectomy (1973) Family History Grandfather Prostate cancer Grandmother Stroke Grandfather Cancer Sister Lung cancer Heavy smoker Father CML (chronic myelocytic leukemia) Mother Stroke Brother No problems noted. Sister No problems noted. Social History marital status: household members: spouse Smoking Status: Never smoker alcohol intake: current substance use type: does not use Smoking Status: Never smoker alcohol intake frequency: a few times a month Substance Use Type: does not use Exam Narrative Exam Narrative: General: Alert appropriate in no acute distress Respiratory: Able to speak in full sentences, no obvious respiratory distress Skin: No obvious rashes, warm and dry Neurologic: Grossly intact no obvious asymmetries or abnormalities Psych: appropriate insight and affect, cooperative Groin: 3 x 3 cm cyst with mild erythema and the medial portion of the left groin just lateral to the base of the penis. Bedside ultrasound of the area indicates a fluid-filled cyst Initial Vital Signs Initial Vital Signs: Vital Signs Temperature 98.0 F 02/09/21 06:35 Pulse Rate 68 02/09/21 06:35 Respiratory Rate 17 02/09/21 06:35 Blood Pressure 170/80 H 02/09/21 06:35 Pulse Oximetry 97 02/09/21 06:35 Procedures Abscess I/D Left groin infected sebaceous cyst: Time of procedure: 07:53 Site: other (Groin) Side (if applicable): left Local Anesthetic: lidocaine 1% and with bicarb Amount of anesthesia used (mL): 5 Technique: incised with #11 blade Amount of fluid expressed (mL): 5 (Some purulence material and quite a bit of sebum extruded as well) Irrigation: Yes Packing used?: none Course Orders Ordered: ED Orders 02/09/21 07:31 Wound Culture and Gram Stain Stat Discontinued Medications Bacitracin (Bacitracin Oint 0.9 Gm Pckt) 1 applic TOP NOW ONE Stop: 02/09/21 07:26 Last Admin: 02/09/21 07:31 Dose: 1 applic Documented by: Lidocaine/Sodium Bicarbonate (Lido 1%/Sod Bicarb 8.4% (10ml) 10 Ml Syringe) 10 ml INJ NOW ONE Stop: 02/09/21 07:26 Last Admin: 02/09/21 07:30 Dose: 10 ml Documented by: Vital Signs Vital signs: Vital Signs - 8 hr 02/09/21 06:35 Temperature 98.0 F Pulse Rate 68 Respiratory Rate 17 Blood Pressure 170/80 H Pulse Oximetry 97 MDM - Skin/Abscess/Foreign Bdy MDM Narrative Medical decision making narrative: 86-year-old gentleman with a small cyst in the left groin irritated increasing painful ingrowing over the last 10 days. Ultrasound shows a fluid-filled collection and I and D reveals sebum as well as purulent material suggestive of an infected sebaceous cyst. The much of the material that could be extruded was removed. Wound culture was taken. Because of the surrounding erythema 5 days of cephalexin as prescribed. Patient tolerated the procedure well. Questions were answered. Safe for home discharge Discharge Plan Departure Patient Disposition: Home Clinical Impression: Infected sebaceous cyst Instructions: DI for Epidermal Cyst Activity Restrictions/Additional Instructions: Thank you for coming in today. I am sorry it was so challenging finding care. You have a sebaceous cyst that became infected. This is completely unrelated to your cancer and should heal nicely. I was able to open up the area to make sure that the infection did not spread and get most of the material out of the cyst. 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 If you have worsening symptoms including redness, increasing pain, increasing swelling, drainage or new symptoms it would be very appropriate to return to the emergency department follow-up with your primary care doctor I wish you the best Prescriptions: New cephalexin 500 mg capsule 500 mg PO TID 5 Days Qty: 15 RF: 0 No Action tamsulosin 0.4 mg capsule 0.4 mg PO BEDTIME Qty: 90 RF: 3 Eligard (3 month) 22.5 mg syringe 22.5 mg SUBCUT [id number] RF: 0 Prolia 60 mg/mL syringe 60 mg SUBCUT [id number] RF: 0 loperamide [Imodium A-D] 2 mg Tablet 2 mg PO Q4H PRN (Reason: Pain (Scale Score 1-3)) RF: 0 celecoxib [Celebrex] 100 mg capsule 200 mg PO AMCC PRN (Reason: Pain (Scale Score 1-3)) RF: 0 loratadine [Claritin] 10 mg tablet 10 mg PO DAILY RF: 0 megestrol 20 mg tablet 20 mg PO BID Qty: 180 RF: 2 ciprofloxacin HCl 500 mg tablet 500 mg PO BID Qty: 6 RF: 0 Referrals: Antonio Andrews MD [Primary Care Provider] -
[2021-02-09] MEDS: LIDO 1%/SOD BICARB 8.4% (10ML) 10 ML SYRINGE INJ (07:30)
[2021-02-09] MEDS: BACITRACIN OINT 0.9 GM PCKT 1 APPLIC TOP (07:31)
[2021-02-09 07:56] VITALS: BP 148/72; PULSE 55; RESP 16; O2SAT 97
== END 2021-02-09 07:57 | disposition home or self-care (01) ==
PROVIDERS: Emergency Provider Emergency Medicine; PCP Student in an Organized Health Care Education/Training Program
DX: L72.3 Sebaceous cyst (principal)
CPT/HCPCS: 10060; 87070; 87077; 87205; 99283

== ENCOUNTER → 2021-03-01 09:20 | Outpatient (CLI) | payer MEDICARE, OTHER, SELFPAY ==
[2021-03-01 11:16] LABS: Prostate Specific Antigen < 0.064 ng/mL (0.10-4.00)
== END ==
PROVIDERS: PCP Student in an Organized Health Care Education/Training Program; Referring Provider Specialist; Visit Provider Specialist
DX: C61 Malignant neoplasm of prostate (principal); N40.0 Benign prostatic hyperplasia without lower urinary tract symptoms
CPT/HCPCS: 36415; 84153

== ENCOUNTER → 2021-08-24 06:55 | Outpatient (CLI) | payer MEDICARE, OTHER, SELFPAY ==
[2021-08-24 08:44] LABS: Add Manual Diff / Slide Review NO; Basophils Absolute Auto 0 /uL (0-100); Basophils Percent Auto 0.8 % (0-2); Eosinophils Absolute Auto 300 /uL (0-450); Eosinophils Percent Auto 8.8 % (2-4); Hematocrit 38.9 % (41-53); Hemoglobin 13.2 g/dL (13.5-17.5); Lymphocytes Absolute Auto 1200 /uL (1100-4500); Mean Corpuscular Hemoglobin 33.1 PG (26-34); Mean Corpuscular Volume 97.5 fL (80-100); Monocytes Absolute Auto 300 /uL (0-900); Monocytes Percent Auto 10.1 % (3-14); Neutrophils Absolute Auto 1200 /uL (1500-7000); Neutrophils Percent Auto 41.3 % (50-75); Platelet Count 137 X10^3/uL (150-400); Red Blood Cell Count 3.98 X10^6/uL (4.5-5.9); Red Cell Distribution Width 13.4 % (11.6-14.8)
[2021-08-24 09:37] LABS: Prostate Specific Antigen < 0.064 ng/mL (0.10-4.00)
== END ==
PROVIDERS: PCP Student in an Organized Health Care Education/Training Program; Referring Provider Specialist; Visit Provider Specialist
DX: C61 Malignant neoplasm of prostate (principal); N40.0 Benign prostatic hyperplasia without lower urinary tract symptoms
CPT/HCPCS: 36415; 84153; 85025

== ENCOUNTER → 2022-02-25 08:29 | Outpatient (CLI) | payer MEDICARE, OTHER, SELFPAY ==
[2022-02-25 10:48] LABS: Prostate Specific Antigen < 0.064 ng/mL (0.10-4.00)
[2022-03-06 11:27] LABS: Testosterone % Fr + Wkly bound 7.6 % (9.0-46.0); Testosterone Fr+Wkly bound 8.7 ng/dL (40.0-250.0); Testosterone, Total 114.4 ng/dL (264.0-916.0)
== END ==
PROVIDERS: PCP Student in an Organized Health Care Education/Training Program; Referring Provider Specialist; Visit Provider Specialist
DX: N40.0 Benign prostatic hyperplasia without lower urinary tract symptoms (principal); Z85.46 Personal history of malignant neoplasm of prostate
CPT/HCPCS: 36415; 84153; 84403

== ENCOUNTER → 2022-04-25 08:13 | Outpatient (CLI) | payer MEDICARE, OTHER, SELFPAY ==
[2022-04-29 12:04] LABS: Testosterone % Fr + Wkly bound 8.9 % (9.0-46.0); Testosterone Fr+Wkly bound 10.1 ng/dL (40.0-250.0); Testosterone, Total 113.8 ng/dL (264.0-916.0)
== END ==
PROVIDERS: PCP Student in an Organized Health Care Education/Training Program; Referring Provider Specialist; Visit Provider Specialist
DX: E29.1 Testicular hypofunction (principal); N40.0 Benign prostatic hyperplasia without lower urinary tract symptoms; Z85.46 Personal history of malignant neoplasm of prostate
CPT/HCPCS: 36415; 84403

== ENCOUNTER → 2022-08-28 08:52 | Outpatient (CLI) | payer MEDICARE, OTHER, SELFPAY ==
[2022-08-28 10:07] LABS: Add Manual Diff / Slide Review NO; Basophils Absolute Auto 0 /uL (0-100); Basophils Percent Auto 1.4 % (0-2); Eosinophils Absolute Auto 300 /uL (0-450); Eosinophils Percent Auto 8.6 % (2-4); Hematocrit 37.7 % (41-53); Hemoglobin 13.3 g/dL (13.5-17.5); Lymphocytes Absolute Auto 1200 /uL (1100-4500); Lymphocytes Percent Auto 37.4 % (25-40); Mean Corpuscular HGB Conc 35.2 % (30-36); Mean Corpuscular Hemoglobin 33.4 PG (26-34); Mean Corpuscular Volume 94.8 fL (80-100); Monocytes Absolute Auto 300 /uL (0-900); Monocytes Percent Auto 10.4 % (3-14); Neutrophils Absolute Auto 1300 /uL (1500-7000); Neutrophils Percent Auto 42.2 % (50-75); Platelet Count 131 X10^3/uL (150-400); Red Blood Cell Count 3.97 X10^6/uL (4.5-5.9); Red Cell Distribution Width 12.8 % (11.6-14.8); White Blood Cell Count 3.1 X10^3/uL (4.5-11.0)
[2022-08-28 11:01] LABS: Testosterone 55.1 ng/dL (71.8-623)
[2022-09-01 11:11] LABS: Prostate Specific Antigen < 0.064 ng/mL (0.10-4.00)
== END ==
PROVIDERS: PCP Student in an Organized Health Care Education/Training Program; Referring Provider Specialist; Visit Provider Specialist
DX: E29.1 Testicular hypofunction (principal); N40.0 Benign prostatic hyperplasia without lower urinary tract symptoms; Z85.46 Personal history of malignant neoplasm of prostate; D75.1 Secondary polycythemia
CPT/HCPCS: 36415; 84153; 84403; 85025

== ENCOUNTER → 2023-02-28 10:11 | Outpatient (CLI) | payer MEDICARE, OTHER, SELFPAY ==
[2023-02-28 10:50] LABS: Add Manual Diff / Slide Review NO; Basophils Absolute Auto 100 /uL (0-100); Basophils Percent Auto 1.3 % (0-2); Eosinophils Absolute Auto 300 /uL (0-450); Eosinophils Percent Auto 5.8 % (2-4); Hematocrit 38.3 % (41-53); Hemoglobin 13.5 g/dL (13.5-17.5); Lymphocytes Absolute Auto 1300 /uL (1100-4500); Lymphocytes Percent Auto 29.1 % (25-40); Mean Corpuscular HGB Conc 35.1 % (30-36); Mean Corpuscular Hemoglobin 33.7 PG (26-34); Mean Corpuscular Volume 96.1 fL (80-100); Monocytes Absolute Auto 400 /uL (0-900); Monocytes Percent Auto 10.1 % (3-14); Neutrophils Absolute Auto 2300 /uL (1500-7000); Neutrophils Percent Auto 53.7 % (50-75); Platelet Count 129 X10^3/uL (150-400); Red Blood Cell Count 3.99 X10^6/uL (4.5-5.9); Red Cell Distribution Width 13.9 % (11.6-14.8); White Blood Cell Count 4.3 X10^3/uL (4.5-11.0)
[2023-02-28 11:47] LABS: Prostate Specific Antigen 0.066 ng/mL (0.10-4.00)
[2023-02-28 11:48] LABS: Testosterone 47.1 ng/dL (71.8-623)
== END ==
PROVIDERS: PCP Pediatrics; Referring Provider Specialist; Visit Provider Pediatrics
DX: Z85.46 Personal history of malignant neoplasm of prostate (principal); E29.1 Testicular hypofunction; N40.0 Benign prostatic hyperplasia without lower urinary tract symptoms; D69.3 Immune thrombocytopenic purpura; E11.9 Type 2 diabetes mellitus without complications; T14.8XXA Other injury of unspecified body region, initial encounter
CPT/HCPCS: 36415; 84153; 84403; 85025

== ENCOUNTER → 2023-07-27 14:14 | Outpatient (CLI) | payer MEDICARE, OTHER, SELFPAY ==
[2023-07-27 14:53] LABS: Add Manual Diff / Slide Review NO; Basophils Absolute Auto 0 /uL (0-100); Eosinophils Absolute Auto 200 /uL (0-450); Hematocrit 40.3 % (41-53); Hemoglobin 14.1 g/dL (13.5-17.5); Lymphocytes Absolute Auto 1100 /uL (1100-4500); Lymphocytes Percent Auto 24.3 % (25-40); Mean Corpuscular HGB Conc 34.9 % (30-36); Mean Corpuscular Hemoglobin 34.2 PG (26-34); Monocytes Absolute Auto 500 /uL (0-900); Neutrophils Absolute Auto 2700 /uL (1500-7000); Neutrophils Percent Auto 58.7 % (50-75); Platelet Count 137 X10^3/uL (150-400); Red Blood Cell Count 4.11 X10^6/uL (4.5-5.9); Red Cell Distribution Width 12.9 % (11.6-14.8); White Blood Cell Count 4.6 X10^3/uL (4.5-11.0)
== END ==
LOC: LAB 14:16
PROVIDERS: PCP Internal Medicine; Referring Provider Internal Medicine Hematology & Oncology; Visit Provider Internal Medicine Hematology & Oncology
DX: D69.6 Thrombocytopenia, unspecified (principal)
CPT/HCPCS: 36415; 85025

== ENCOUNTER → 2023-10-16 11:36 | Outpatient (CLI) | payer MEDICARE, OTHER, SELFPAY ==
[2023-10-16 12:20] LABS: Add Manual Diff / Slide Review NO; Basophils Absolute Auto 0 /uL (0-100); Basophils Percent Auto 0.9 % (0-2); Eosinophils Absolute Auto 200 /uL (0-450); Eosinophils Percent Auto 5.5 % (2-4); Hematocrit 37.8 % (41-53); Hemoglobin 12.9 g/dL (13.5-17.5); Lymphocytes Absolute Auto 1300 /uL (1100-4500); Lymphocytes Percent Auto 30.2 % (25-40); Mean Corpuscular HGB Conc 34.2 % (30-36); Mean Corpuscular Hemoglobin 33.4 PG (26-34); Mean Corpuscular Volume 97.7 fL (80-100); Monocytes Absolute Auto 500 /uL (0-900); Neutrophils Absolute Auto 2200 /uL (1500-7000); Neutrophils Percent Auto 52.4 % (50-75); Platelet Count 142 X10^3/uL (150-400); Red Blood Cell Count 3.87 X10^6/uL (4.5-5.9); Red Cell Distribution Width 13.2 % (11.6-14.8); White Blood Cell Count 4.3 X10^3/uL (4.5-11.0)
[2023-10-16 12:53] LABS: Alanine Aminotransferase 17 IU/L (<50); Albumin 4.1 g/dL (3.5-5.0); Albumin Globulin Ratio 1.4 (1.0-2.8); Alkaline Phosphatase 76 U/L (38-126); Aspartate Aminotransferase 27 IU/L (17-59); BUN Creatinine Ratio 18.8 (6-22); Bilirubin Total 0.8 mg/dL (0.2-1.3); Blood Urea Nitrogen 19 mg/dL (9-20); Calcium 8.9 mg/dL (8.4-10.2); Carbon Dioxide 32 mmol/L (22-32); Chloride 105 mmol/L (98-107); Estimated Glomerular Filt Rate > 60 mL/min (>60); Glucose 103 mg/dL (80-110); HEMOLYSIS < 15 (0-50); Potassium 4.2 mmol/L (3.4-5.1); Sodium 138 mmol/L (137-145); Total Protein 7.1 g/dL (6.3-8.2)
== END ==
PROVIDERS: PCP Internal Medicine; Referring Provider Internal Medicine Hematology & Oncology; Visit Provider Internal Medicine Hematology & Oncology
DX: D69.6 Thrombocytopenia, unspecified (principal)
CPT/HCPCS: 36415; 80053; 85025

== ENCOUNTER → 2023-11-15 12:31 | Outpatient (CLI) | payer MEDICARE, SELFPAY ==
--- NOTE | 2023-11-15 12:34 | DI.RAD.S_ITS ---
PROCEDURE: XR CHEST 2V INDICATIONS: Cough TECHNIQUE: 2 views of the chest were acquired. COMPARISON: [facility], CT, CT [email or web address], 09/21/2020, 12:16. [facility], CR, XR CHEST 1V, 04/02/2020, 10:39. [facility], CR, CHEST 2 VIEW, 12/01/2015, 16:25. FINDINGS: Surgical changes and devices: None. Lungs and pleura: No consolidation. No pleural effusions or pneumothorax. Stable bilateral mid lung zone nodularity. Mediastinum: Mediastinal contours are normal. Heart size is normal. Bones and chest wall: No suspicious bony abnormalities. Soft tissues appear unremarkable. IMPRESSION: No acute cardiopulmonary abnormality is seen. Stable bilateral mid lung zone nodularity compared with 2019. Findings probably represent calcified granuloma. However, low-dose chest CT should be considered for confirmation. Dictated by: Vik Evans M.D. on 11/15/2023 at 16:54 Approved by: Vik Evans M.D. on 11/15/2023 at 16:55
== END ==
LOC: RAD 12:33
PROVIDERS: PCP Internal Medicine; Referring Provider Nurse Practitioner Family; Visit Provider Nurse Practitioner Family
DX: R05.9 Cough, unspecified (principal); R91.8 Other nonspecific abnormal finding of lung field
CPT/HCPCS: 71046

== ENCOUNTER → 2024-02-25 14:06 | Outpatient (CLI) | payer MEDICARE, OTHER, SELFPAY ==
[2024-02-25 16:05] LABS: Prostate Specific Antigen < 0.064 ng/mL (0.10-4.00)
== END ==
LOC: LAB 14:10
PROVIDERS: PCP Internal Medicine; Referring Provider Radiology Radiation Oncology; Visit Provider Radiology Radiation Oncology
DX: C61 Malignant neoplasm of prostate (principal)
CPT/HCPCS: 36415; 84153

== ENCOUNTER → 2024-06-24 08:41 | Outpatient (CLI) | payer MEDICARE, OTHER, SELFPAY ==
[2024-06-24 09:33] LABS: Hemoglobin 13.4 g/dL (13.5-17.5); Mean Corpuscular HGB Conc 34.4 % (30-36); Mean Corpuscular Hemoglobin 33.5 PG (26-34); Mean Corpuscular Volume 97.2 fL (80-100); Platelet Count 147 X10^3/uL (150-400); Red Blood Cell Count 4.01 X10^6/uL (4.5-5.9); Red Cell Distribution Width 13.8 % (11.6-14.8); White Blood Cell Count 3.2 X10^3/uL (4.5-11.0)
[2024-06-24 09:57] LABS: Alanine Aminotransferase 20 IU/L (<50); Albumin 3.9 g/dL (3.5-5.0); Albumin Globulin Ratio 1.2 (1.0-2.8); Alkaline Phosphatase 75 U/L (38-126); Aspartate Aminotransferase 31 IU/L (17-59); BUN Creatinine Ratio 17.3 (6-22); Bilirubin Total 0.8 mg/dL (0.2-1.3); Blood Urea Nitrogen 19 mg/dL (9-20); Calcium 9.2 mg/dL (8.4-10.2); Carbon Dioxide 30 mmol/L (22-32); Chloride 103 mmol/L (98-107); Cholesterol 177 mg/dL (140-199); Estimated Glomerular Filt Rate > 60 mL/min (>60); Globulin 3.2 g/dL (1.7-4.1); Glucose 99 mg/dL (80-110); HDL Cholesterol 49 mg/dL (40-60); HEMOLYSIS < 15 (0-50); LDL Cholesterol Calculated 83 mg/dL (<100); Potassium 4.3 mmol/L (3.4-5.1); Sodium 136 mmol/L (137-145); Total Protein 7.1 g/dL (6.3-8.2); Triglycerides 223 mg/dL (35-150)
[2024-06-24 10:26] LABS: TSH w/ Reflex to FT4 4.13 uIU/mL (0.47-4.68)
[2024-06-25 07:08] LABS: PSA Ultrasensitive <0.006 ng/mL (0.000-4.000)
== END ==
PROVIDERS: PCP Internal Medicine; Referring Provider Internal Medicine; Visit Provider Internal Medicine
DX: D69.3 Immune thrombocytopenic purpura (principal); E78.2 Mixed hyperlipidemia; Z85.46 Personal history of malignant neoplasm of prostate; C61 Malignant neoplasm of prostate
CPT/HCPCS: 36415; 80053; 80061; 84153; 84443; 85027